=== PATIENT | male | born 1960 | race Caucasian/White ===

== ENCOUNTER 2018-09-06 11:57 | Inpatient (IN) | payer OTHER ==
[2018-09-06] VITALS (17 sets, daily range): BP systolic 88–145; BP diastolic 39–81
[~2018-09-06] VITALS: Ht 165.1 cm; Wt 56.2 kg
--- NOTE | 2018-09-06 12:00 | NUR ---
PATIENT RESP SHALLOW, LABORED, WITH USE OF ACCESSORY MUSCLES. SKIN PALE AND DIAPHORETIC. DR MEYERS AT BEDSIDE. ACADIAN WARRANTY ADMINISTRATOR AT BEDSIDE STATES PATIENT PULLED OUT TRACH AND THE PENITENTIARY STAFF WAS UNABLE TO RE-INSERT TRACH. TRACH STOMA BEING BAGGED BY RESPIRATORY. DR MEYERS AT BEDSIDE PREPPING PATIENT FOR TRACH INSERTION.
--- NOTE | 2018-09-06 12:05 | NUR ---
6.0 SHILEY CUFFED TRACH PLACED BY DR MEYERS,RESPIRATORY AT BEDSIDE. RESP LABORED WITH USE OF ACESSORY MUSCLES, PALE AND DIAPHORETIC. BAGGED BY RESPIRATORY
--- NOTE | 2018-09-06 12:08 | NUR ---
SPO2 60%,BAGGED BY RESPIRATORY, DR MEYERS AT BEDSIDE.
[2018-09-06] MEDS ORDERED: SODIUM CHLORIDE 0.9% 1000ML 2,000 ML ONE (12:17)
--- NOTE | 2018-09-06 12:18 | NUR ---
XRAY AT [facility] FOR CXR.
--- NOTE | 2018-09-06 12:23 | NUR ---
UNABLE TO START PERIPHERAL IV ACCESS, MULTIPLE UNSUCCESSFUL ATTEMPTS, DR MEYERS AT BEDSIDE PREPPING PATIENT FOR CENTRAL LINE PLACEMENT. SPO2 60%, TACHYPENIC, HYPOTENSIVE. Addendum: 09/06/18 at 1704 by AMCCAULE UNABLE TO START PERIPHERAL IV ACCESS, MULTIPLE UNSUCCESSFUL ATTEMPTS, DR MEYERS AT BEDSIDE PREPPING PATIENT FOR EMERGENCY CENTRAL LINE PLACEMENT. SPO2 60%, TACHYPENIC, HYPOTENSIVE. UNABLE TO REACH FAMILY TO OBTAIN CONSENT.
--- NOTE | 2018-09-06 12:31 | NUR ---
RESPIRATORY AT BEDSIDE FOR ABG,UNSUCCESSFUL ATTEMPT, DR MEYERS AT STATES HE WILL PERFORM A FEMORAL STICK TO OBTAIN ABG AFTER CENTRAL LINE IS PLACED.
--- NOTE | 2018-09-06 12:36 | Diagnostic Imaging Report ---
Examination: Single AP view of the chest. COMPARISON: None. INDICATION: Respiratory distress DISCUSSION: Patient rotated. Lines/tubes: Tracheostomy. Lungs: Left midlung consolidation. Bibasilar atelectasis. Pleura: Probable bilateral effusions. Heart and mediastinum: The heart and the mediastinum are unremarkable. Bones and soft tissues: No acute bony abnormalities. IMPRESSION: 1. Left midlung consolidation may reflect pneumonia Signed by: Dr. Hunter Mcclellan M.D. on 09/06/2018 12:33 PM
[2018-09-06] MEDS ORDERED: SODIUM CHLORIDE 0.9% 1000ML 1,000 ML IV ONE ×3 (12:38→14:56)
--- NOTE | 2018-09-06 12:38 | NUR ---
XRAY AT BEDSIDE FOR CXR POST CENTRAL LINE PLACEMENT. PATIENT HYPOTENSIVE, TACHYPENIC. DR MEYERS STARTED STARTED 2L NS BOLUS TO CENTRAL LINE.
--- NOTE | 2018-09-06 12:44 | NUR ---
ABG DRAWN FROM RIGHT FEMORAL ARTERY BY DR MEYERS, TOLERATED WELL.
--- NOTE | 2018-09-06 12:51 | NUR ---
ALLEVYN WOUND DRESSINGS APPLIED TO SACCRAL,RIGHT GLUTEAL FOLD, AND LEFT BUTTOCKS. DRESSING APPLIED TO RIGHT LOWER LEG. TOLERATED WELL.
--- NOTE | 2018-09-06 12:59 | Diagnostic Imaging Report ---
Examination: Single AP view of the chest. COMPARISON: today INDICATION: Respiratory distress DISCUSSION: Patient rotated. Lines/tubes: Tracheostomy. Left central venous catheter with tip overlying the SVC. Lungs: Left midlung consolidation. Bibasilar atelectasis. Pulmonary venous congestion. Pleura: Probable bilateral effusions. Heart and mediastinum: The heart and the mediastinum are unremarkable. Bones and soft tissues: No acute bony abnormalities. Degenerative changes in the thoracic spine. IMPRESSION: 1. Left midlung consolidation may reflect pneumonia 2. Left central venous catheter with tip overlying the SVC. Signed by: Dr. Hunter Mcclellan M.D. on 09/06/2018 12:56 PM
--- NOTE | 2018-09-06 13:06 | NUR ---
DR MEYERS AND RESPIRATORY AT BEDSIDE FOR TRACH EXCHANGE. 8.0 XLT SHILEY CUFFED PLACED BY DR MEYERS,TOLERATED WELL, RECONNECTED TO VENT. TRACH TIES IN PLACE, FINESTRATED DRESSING PLACED AROUND STOMA. SEROSANGUINEOUS PURLENT DRAINAGE NOTED FROM CIRCUMFERENTIAL WOUND AROUND STOMA.
--- NOTE | 2018-09-06 13:09 | NUR ---
OK TO USE CENTRAL LINE PER DR MEYERS.
--- NOTE | 2018-09-06 13:15 | NUR ---
RESPIRATORY AND DR MEYERS AT BEDSIDE,TIDAL VOLUME INCREASED TO 450, NO IMPROVEMENT, TIDAL VOLUME INCREASED TO 500.
[2018-09-06] MEDS ORDERED: PIPER-TAZ 3.375 GM 50 ML IV STA (13:31)
[2018-09-06] MEDS ORDERED: VANCOMYCIN 1GM/NS 250 ML 250 ML IV STA (13:31)
[2018-09-06 13:32] LABS: BASOPHILS % 0.2 % (0.0-1.0); EOSINOPHILS # (AUTO) 0.1 (0.0-0.4); EOSINOPHILS % 0.3 % (0.0-6.0); HEMATOCRIT 19.9 % (38.2-49.6); LYMPHOCYTES # (AUTO) 1.4 (1.0-3.2); LYMPHOCYTES % 6.7 % (18.0-39.1); MEAN CORPUSCULAR HEMOGLOBIN 26.3 pg (28-32); MEAN CORPUSCULAR HGB CONC 28.6 g/dL (31-35); MEAN CORPUSCULAR VOLUME 91.7 fL (81-99); MONOCYTES # (AUTO) 0.9 (0.2-0.8); MONOCYTES % 4.3 % (4.4-11.3); NEUTROPHILS # (AUTO) 17.8 (2.1-6.9); NEUTROPHILS % 88.2 % (38.7-80.0); PLATELET COUNT 318 x10e3/uL (140-360); RED BLOOD COUNT 2.17 x10e6/uL (4.3-5.7); RED CELL DISTRIBUTION WIDTH 18.6 % (11.7-14.4)
--- NOTE | 2018-09-06 13:37 | NUR ---
RESPIRATORY AT BEDSIDE FOR REPEAT ABG.
[2018-09-06 13:48] LABS: INR 1.09; PROTHROMBIN TIME 14.6 seconds (11.9-14.5)
[2018-09-06 13:49] LABS: PARTIAL THROMBOPLASTIN TIME 37.5 seconds (23.8-35.5)
--- NOTE | 2018-09-06 13:54 | NUR ---
NOTIFIED DR MEYERS BP 80/42, VERBAL ORDER NS @ 125ML/HR ORDERED.
[2018-09-06 13:55] LABS: HEMOGLOBIN 5.7 g/dL (14.0-18.0)
[2018-09-06] MEDS ORDERED: SODIUM CHLORIDE 0.9% 1000ML 1,000 ML ONE (13:55)
--- NOTE | 2018-09-06 13:58 | NUR ---
DR ROLLE AT BEDSIDE FOR PATIENT EVAL AND DISCUSSING THE CURENT PLAN OF CARE WITH PATIENT, DISCUSSING CODE STATUS, PATIENT NODDED HEAD UP AND DOWN WHEN DR ROLLE ASKED PATIENT IF HE WANTED TO BE PLACED ON MEDICATION TO MAINTIAN BLOOD PRESSURE. PATIENT MOUTHED "NO" WHEN ASKED BY DR ROLLE ABOUT CPR, AND RESUSCITATION MEASURES,NO CARDIAC MEDICAITONS OR DEFIBRILATION. PATIENT WISHES TO REMAIN A DNR WHILE IN THE HOSPITAL. PATIENT OK WITH VENT AND MEDICATIONS TO MAINTAIN BLOOD PRESSURE,NODDED HEAD UP AND DOWN TO DR ROLLE.
[2018-09-06 13:59] LABS: ALBUMIN 1.2 g/dL (3.5-5.0); ALBUMIN/GLOBULIN RATIO 0.2 (0.8-2.0); ANION GAP 14.3 mmol/L (8-16); CREATININE, SERUM 1.28 mg/dL (0.72-1.25); MAGNESIUM 1.6 MG/DL (1.3-2.1); POTASSIUM 5.3 mmol/L (3.5-5.1)
[2018-09-06] MEDS ORDERED: FENTANYL CITRATE INJ 2,000 MCG in SODIUM CHLORIDE 0.9% 250ML 210 ML IV PRN (14:00)
[2018-09-06] MEDS ORDERED: SODIUM CHLORIDE 0.9% 250ML 250 ML IV ONE (14:00)
[2018-09-06 14:05] LABS: B-TYPE NATRIURETIC PEPTIDE2 82.9 pg/mL (0-100)
[2018-09-06 14:06] LABS: CREATINE KINASE MB 0.7 ng/mL (0-5.0)
--- NOTE | 2018-09-06 14:10 | NUR ---
DR ROLLE AT BEDSIDE. VERBAL ORDER TO INITIATE PATIENT ON LEVOPHED PER PROTOCOL.
[2018-09-06] MEDS ORDERED: NOREPINEPHRINE 8 MG/D5W 250 ML 250 ML ONE (14:16)
[2018-09-06] MEDS: NOREPINEPHRINE INJ 4MG/4ML 8 MG in DEXTROSE 5% 250ML 250 ML IV SCH (14:19)
[2018-09-06] MEDS: MIDAZOLAM HCL 25 MG in SODIUM CHLORIDE 0.9% 50ML 45 ML IV PRN ×2 (14:22→22:00)
[2018-09-06 14:28] LABS: BAND NEUTROPHILS % (MANUAL) 2 %; EOSINOPHILS % (MANUAL) 1 % (0-7); LYMPHOCYTES % (MANUAL) 9 % (19-48); MONOCYTES % (MANUAL) 5 % (3.4-9.0); NEUTROPHILS % (MANUAL) 73 % (40-74)
[2018-09-06 14:29] LABS: PLATELET ESTIMATE ADEQUATE; PLATELET MORPHOLOGY COMMENT NORMAL; RBC MORPHOLOGY COMMENT NORMAL
--- NOTE | 2018-09-06 14:30 | NUR ---
XRAY AT BEDSIDE FOR CXR POST TRACH TUBE EXCHANGE.
--- NOTE | 2018-09-06 14:33 | NUR ---
PATIENT TURNED TO LEFT LATERAL AND PILLOW PLACED UNDER LEGS TO PROTECT HEELS,TOLERATED WELL.
--- NOTE | 2018-09-06 14:37 | NUR ---
BLOOD COLLECTED FOR TYPE AND CROSS,VERIFIED BY CHERYL KUMAR RN AT BEDSIDE.
--- NOTE | 2018-09-06 14:38 | NUR ---
SPOKE WITH DORENE DILLAN AND WAS INFORMED OF PATIENTS CURRENT STATUS, STATES SHE WILL BE UP HERE FROM [place].
--- NOTE | 2018-09-06 14:48 | Diagnostic Imaging Report ---
Examination: Single AP view of the chest. COMPARISON: None. INDICATION: Respiratory distress DISCUSSION: Lines/tubes: Tracheostomy placement. Left central venous catheter stable. Lungs: Stable left midlung consolidation. New opacification of the right upper lung may reflect atelectasis. Pleura: Probable bilateral effusions. Heart and mediastinum: The heart and the mediastinum are unremarkable. Bones and soft tissues: No acute bony abnormalities. Degenerative changes in the thoracic spine. IMPRESSION: Left midlung consolidation is stable New right upper lobe aspiration/atelectasis. Signed by: Dr. Hunter Mcclellan M.D. on 09/06/2018 2:45 PM
--- NOTE | 2018-09-06 14:51 | NUR ---
PATIENT LAYING IN BED WITH EYES CLOSED. RESP EVEN AND UNLABORED. SKIN PALE AND DRY. TRACH VENTED, TOLERATING VENT WELL. SEDATED AT THIS TIME. NO SIGNS OF ACUTE DISTRESS NOTED AT THIS TIME.
--- OUTSIDE RECORDS SUMMARY | 2018-09-06 15:41 | XMS REPORT ---
Author Author [facility] Address Unknown Phone Unavailable Care Team Providers Care Transport Analyst Name Role Phone Reji MEYERS Unavailable Unavailable Problems This patient has no known problems. Allergies, Adverse Reactions, Alerts This patient has no known allergies or adverse reactions. Medications This patient has no known medications. Results Test Description Test Time Test Comments Text Results Atomic Results Result Comments CHEST SINGLE (PORTABLE) 2018-09-06 14:43:00 [place] [address] Patient Name: JACQUIE MIRELES MR #: [id number] : 1960 Age/Sex: 58/M Req #: [id number] Adm Physician: Ordered by: NATHALIA MEYERS MD Report #: [id number] Location: ER Room/Bed: Procedure: [id number] DX/CHEST SINGLE (PORTABLE) Exam Date: 09/06/18 Exam Time: 1435 REPORT STATUS: Signed Examination: Single AP view of the chest. COM PARISON: None. INDICATION: Respiratory distress DISCUSSION: Lines/tubes: Tracheostomy placement. Left central venous catheter stable. Lungs: Stable left midlung consolidation. New opacification of the right upper lung may reflect atelectasis. Pleura: Probable bilateral effusions. Heart and mediastinum: The heart and the mediastinum are unremarkable. Bones and soft tissues: No acute bony abnormalities. Degenerative changes in the thoracic spine. IMPRESSION: Left midlung consolidation is stable New right upper lobe aspiration/atelectasis. Signed by: Dr. Emma nSyder M.D. on 09/06/2018 2:45 PM Dictated By: EMMA SNYDER MD 44 Transcribed By: MCKAY on 09/06/181444 COPY TO: NATHALIA MEYERS MD CHEST XRAY LINE PLACEMENT 2018-09-06 12:54:00 [place] [address] Patient Name: JACQUIE MIRELES MR #: [id number] : 1960 Age/Sex: 58/M Req #: [id number] Adm Physician: Ordered by: NATHALIA MEYERS MD Report #: [id number] Location: ER Room/Bed: Procedure: [id number] DX/CHEST XRAY LINE PLACEMENT Exam Date: 09/06/18 Exam Time: 1240 REPORT STATUS: Signed Examination: Single AP view of the chest. C OMPARISON: today INDICATION: Respiratory distress DISCUSSION: Patient rotated. Lines/tubes: Tracheostomy. Left central venous catheter with tip overlying the SVC. Lungs: Left midlung consolidation. Bibasilar atelectasis. Pulmonary venous congestion. Pleura: Probable bilateral effusions. Heart and mediastinum: The heart and the mediastinum are unremarkable. Bones and soft tissues: No acute bony abnormalities. Degenerative changes in the thoracic spine. IMPRESSION: 1. Left midlung consolidation may reflect pneumonia 2. Left central venous catheter with tip overlying the SVC. Signed by: Dr. Emma Snyder M.D. on 09/06/2018 12:56 PM Dictated By: EMMA SNYDER MD 1256 Transcribed By: MCKAY on 09/06/18 1256 COPY TO: NATHALIA MEYERS MD CHEST SINGLE (PORTABLE) 2018-09-06 12:32:00 [place] [address] Patient Name: JACQUIE MIRELES MR #: [id number] : 1960 Age/Sex: 58/M Req #: [id number] Adm Physician: Ordered by: MELISSA MANZO NP Report #: [id number] Location: ER Room/Bed: Procedure: [id number] DX/CHEST SINGLE (PORTABLE) Exam Date: 09/06/18 Exam Time: 1220 REPORT STATUS: Signed Examination: Single AP view of the chest. CO MPARISON: None. INDICATION: Respiratory distress DISCUSSION: Patient rotated. Lines/tubes: Tracheostomy. Lungs: Left midlung consolidation. Bibasilar atelectasis. Pleura: Probable bilateral effusions. Heart and mediastinum: The heart and the mediastinum are unremarkable. Bones and soft tissues: No acute bony abnormalities. IMPRESSION: 1. Left midlung consolidation may reflect pneumonia Signed by: Dr. Emma Snyder M.D. on 09/06/2018 12:33 PM Dictated By: EMMA SNYDER MD 1233 Transcribed By: MCKAY on 09/06/18 1233 COPY TO: MELISSA MANZO NP
[2018-09-06] MEDS ORDERED: HYDROCORTISONE SOD SUCCINATE 100 MG VIAL IV NR (15:45)
--- NOTE | 2018-09-06 15:57 | NUR ---
RESPIRATORY AT BEDSIDE, SPO2 DROPPING 60-70, SUCTIONING TRACH,TOLERATED WELL.
--- NOTE | 2018-09-06 15:59 | NUR ---
SPO2 IMPROVED AFTER TRACH SUCTIONING, SPO2 NOW 98%.
[2018-09-06] MEDS: VANCOMYCIN HCL 1GM/NS 250 ML BAG IV SCH (16:00)
--- NOTE | 2018-09-06 16:00 | NUR ---
DR FLORES AT BEDSIDE FOR PATIENT EVAL.
[2018-09-06 16:28] LABS: CLARITY,URINE CLOUDY (CLEAR); COLOR,URINE YELLOW (YELLOW)
[2018-09-06 16:29] LABS: LEUKOCYTE ESTERASE ,URINE 2+ (NEGATIVE); PROTEIN,URINE DIPSTICK 2+ (NEGATIVE)
[2018-09-06 16:30] LABS: KETONES,URINE NEGATIVE (NEGATIVE); NITRITE,URINE NEGATIVE (NEGATIVE); URINE UROBILINOGEN 0.2 mg/dL (0.2 - 1)
[2018-09-06 16:31] LABS: BACTERIA,URINE MANY /HPF; BILIRUBIN,URINE NEGATIVE (NEGATIVE); EPITHELIAL CELLS,URINE MODERATE /LPF; WBC,URINE (MAN) >50 /HPF (0-5)
[2018-09-06 16:48] LABS: ABG HCO3 26 mmol/L (23-28); ABG PCO2 39 mmHg (41-51); ABG PH 7.43 (7.31-7.41); ABG PO2 52 mmHg (80-105)
[2018-09-06 16:50] LABS: ABG HCO3 23 mmol/L (23-28); ABG PCO2 37 mmHg (41-51); ABG PO2 50 mmHg (80-105)
[2018-09-06] MEDS: PANTOPRAZOLE 40 MG 10ML VIAL IV SCH (17:00)
--- NOTE | 2018-09-06 17:20 | NUR ---
PATIENT TRANSPORTED TO ICU ROOM 190 ON PORTABLE VENT AND COOK ROAST, WITH RESPIRATORY AND INSTRUMENT TECHNICIAN APPRENTICE. NO SIGNS OF ACUTE DISTRESS NOTED AT THIS TIME.
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
[2018-09-06] MEDS: ALBUTEROL/IPRATROPIUM 3 ML NEB NEB SCH (19:00)
[2018-09-06] MEDS ORDERED: ALBUTEROL SULF 0.083% NEB SOLN 3 ML NEB NEB SCH (19:00)
[2018-09-06] MEDS: IPRATROPIUM BROMIDE 0.02% 2.5 ML NEB NEB SCH (19:00)
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
--- NOTE | 2018-09-06 19:44 | NUR ---
patient transferred to ICU room 190 from ER at 1730. patient restless. versed drip increased to 8mg/hr. levophed titrated down to 5mcg/min. ivf's infusing. skin assessment completed. 3 open pressure ulcers to sacral/buttocks area. stage 3 and left buttock stage 4. updated daughter with plan of care.
--- NOTE | 2018-09-06 19:47 | NUR ---
report given to assembler 1st shift RN
[2018-09-06] MEDS: PIPER-TAZ 3.375 GM 50 ML IV SCH (20:45)
[2018-09-06] MEDS: SODIUM CHLORIDE 0.9% 1000ML 1,000 ML IV SCH ×2 (20:48→23:31)
[2018-09-06] MEDS: HYDROCORTISONE SOD SUCCINATE 100 MG VIAL IV SCH (20:48)
[2018-09-06] MEDS ORDERED: ACETAMINOPHEN 1000 MG/100 ML IV PRN (21:30)
--- NOTE | 2018-09-06 21:30 | NUR ---
CALL PLACED TO RENAL FOR NEW CONSULT
[2018-09-06] MEDS ORDERED: SODIUM CHLORIDE 0.9% 250ML 250 ML ONE (21:53)
--- NOTE | 2018-09-06 22:34 | NUR ---
DR BECERRA RETURNED CALL, INFORMED OF PATIENT HISTORY AND STATUS, NEW ORDERS NOTED FOR LAB WORK IN AM
[2018-09-07] VITALS (25 sets, daily range): BP systolic 90–181; BP diastolic 57–85
--- NOTE | 2018-09-07 | NUR ---
bLOOD PRESSURE STABLE WITH SYST > 90 AND MAP > 65 - LEVOPHED TURNED OFF AT THIS TIME
[2018-09-07] MEDS: IPRATROPIUM BROMIDE 0.02% 2.5 ML NEB NEB SCH (00:30)
[2018-09-07] MEDS: ALBUTEROL/IPRATROPIUM 3 ML NEB NEB SCH ×4 (00:30→18:30)
[2018-09-07] MEDS: HYDROCORTISONE SOD SUCCINATE 100 MG VIAL IV SCH ×4 (00:32→18:05)
[2018-09-07] MEDS: PIPER-TAZ 3.375 GM 50 ML IV SCH ×4 (00:32→18:05)
[2018-09-07] MEDS: MIDAZOLAM HCL 25 MG in SODIUM CHLORIDE 0.9% 50ML 45 ML IV PRN ×2 (01:30→04:55)
[2018-09-07] MEDS: VANCOMYCIN HCL 1GM/NS 250 ML BAG IV SCH ×2 (03:47→16:05)
[2018-09-07 05:43] LABS: BASOPHILS # (AUTO) 0.1 (0.0-0.1); BASOPHILS % 0.3 % (0.0-1.0); EOSINOPHILS # (AUTO) 0.1 (0.0-0.4); EOSINOPHILS % 0.2 % (0.0-6.0); HEMATOCRIT 28.4 % (38.2-49.6); HEMOGLOBIN 8.7 g/dL (14.0-18.0); LYMPHOCYTES # (AUTO) 1.8 (1.0-3.2); LYMPHOCYTES % 8.7 % (18.0-39.1); MEAN CORPUSCULAR HEMOGLOBIN 27.2 pg (28-32); MEAN CORPUSCULAR HGB CONC 30.6 g/dL (31-35); MEAN CORPUSCULAR VOLUME 88.8 fL (81-99); MONOCYTES # (AUTO) 0.5 (0.2-0.8); MONOCYTES % 2.3 % (4.4-11.3); NEUTROPHILS # (AUTO) 18.2 (2.1-6.9); NEUTROPHILS % 87.7 % (38.7-80.0); PLATELET COUNT 285 x10e3/uL (140-360); RED CELL DISTRIBUTION WIDTH 17.1 % (11.7-14.4)
[2018-09-07 05:52] LABS: INR 1.13
[2018-09-07 05:59] LABS: ANION GAP 11.3 mmol/L (8-16); BLOOD UREA NITROGEN 47 mg/dL (7-26); BUN/CREATININE RATIO 45 (6-25); CALCIUM 8.7 mg/dL (8.4-10.2); CARBON DIOXIDE 24 mmol/L (22-29); CHLORIDE 108 mmol/L (98-107); CREATININE, SERUM 1.04 mg/dL (0.72-1.25); EST GLOMERULAR FILTRATION RATE > 60 ML/MIN (60-); GLUCOSE 108 mg/dL (74-118); POTASSIUM 4.3 mmol/L (3.5-5.1); SODIUM 139 mmol/L (136-145)
[2018-09-07 06:12] LABS: CREATINE KINASE < 7 IU/L (30-200)
--- NOTE | 2018-09-07 06:17 | Diagnostic Imaging Report ---
Examination: Single AP view of the chest. COMPARISON: Portable chest 09/06/2018 INDICATION: Sepsis and hypotension IMPRESSION: 1. Lines and Tubes: Supporting lines and tubes are unchanged. 2. Lungs are well-inflated. Improved aeration/interval improvement of the previously visualized left upper lung airspace opacity. No significant interval change in left midlung/lower lung airspace opacity. Small right pleural effusion. 3. Cardiomediastinal silhouette is normal. Mild central congestion. 4. No acute bony abnormalities. Signed by: Dr. Kemal Martin M.D. on 09/07/2018 6:14 AM
[2018-09-07] MEDS: NOREPINEPHRINE INJ 4MG/4ML 8 MG in DEXTROSE 5% 250ML 250 ML IV SCH (07:59)
[2018-09-07 08:24] LABS: CREATININE,URINE RANDOM 21.25 mg/dL (63-166)
[2018-09-07 09:28] LABS: ABG PCO2 40 mmHg (41-51); ABG PH 7.36 (7.31-7.41); ABG PO2 168 mmHg (80-105)
[2018-09-07 09:29] LABS: ABG HCO3 22 mmol/L (23-28)
[2018-09-07] MEDS: HEPARIN SOD (PORCINE) 5,000 UNIT/ML VIAL SC SCH ×2 (09:30→22:05)
[2018-09-07] MEDS: PANTOPRAZOLE 40 MG 10ML VIAL IV SCH ×2 (09:45→18:05)
[2018-09-07] MEDS: SODIUM CHLORIDE 0.9% 1000ML 1,000 ML IV SCH ×2 (10:22→20:41)
--- NOTE | 2018-09-07 10:44 | Diagnostic Imaging Report ---
Exam: Abdominal film Clinical History: Sepsis, hypotension, G-tube Comparison: Chest radiograph earlier 09/07/2018 DISCUSSION: Gastrostomy catheter retention bolster projects over the gastric body, unchanged compared to 09/07/2018. Bowel gas pattern shows no dilated, air-filled loops of bowel. Radiodense material projecting over the left midabdomen may represent enteric contrast material in the left colon. No jordin pneumoperitoneum. IVC filter projects over the L2 and upper L3 vertebral bodies to the right of midline. Atherosclerotic vascular calcifications. Regional skeletal structures are intact. IMPRESSION: Nonobstructive bowel gas pattern. Unchanged position of gastrostomy catheter relative to chest radiograph earlier 09/07/2018. Signed by: Dr. Balta Feliz M.D. on 09/07/2018 10:41 AM
--- NOTE | 2018-09-07 11:30 | NUR ---
WOUND CARE NURSE CONSULTATION. 58 YEAR OLD MALE ADMITTED TO [facility] WITH SEPSIS WITH HYPOTENSION, ACUTE HYPOXIC RESPIRATORY FAILURE. HEAD TO TOE SKIN ASSESSMENT PERFORMED TODAY, PT PRESENTS WITH MULTIPLE PRESSURE ULCERS. PT IS INTUBATED, HAS COLOSTOMY AND PEG TUBE IN PLACE. UPON ASSESSMENT PT PRESENTS WITH A STAGE IV PRESSURE ULCER TO SACRUM, 7.5X13X0.9CM 30% FIBRIN 70% GRANULAR, BONE EXPOSED. STAGE IV PRESSURE ULCER TO LEFT ISCHIUM, [id number] WITH UNDERMINING 2.8CM FROM 10-12 O'CLOCK. BONE EXPOSED. STAGE III PRESSURE ULCER TO RIGHT ISCHIUM, 5X6X1 CM. RIGHT LATERAL LOWER LEG STAGE III PRESSURE ULCER, 9X2.4X0.2CM. 40% GRANULAR, 60% GRANULAR. MODERATE SEROSANGUINEOUS DRAINAGE IS PRESENT FROM ALL ULCERS. PT ALSO PRESENTS WITH A LEFT BKA WITH SUTURES INTACT. THERE ARE NO OTHER AREAS OF CONCERN AT THIS TIME. NO S/S OF INFECTION. LABS: WBC: 20.80 ALB: 1.2 BLOOD AND SPUTUM CX PENDING. SPOKE WITH DR. COOK FOR RECOMMENDATIONS TO PLACE A WOUND VAC ON SACRAL AND BILATERAL ISCHIAL WOUNDS STATES " LETS JUST DO LOCAL DAILY WOUND CARE FOR NOW" RECOMMENDATIONS. CLEAN SACRUM, BILATERAL ISCHIUM, AND LEFT LOWER LEG ULCERS WITH NS, APPLY MAXORB AG TO WOUND BED AND COVER WITH ABD PADS AND TAPE. CHANGE DRESSING DAILY AND PRN. DRY DRESSING TO LEFT BKA. DAILY. TURN PT EVERY TWO HOURS AND PRN. CONTINUE WITH ALTERNATING LOW AIR LOSS MATTRESS. CONTINUE WITH RIGHT HEEL PROTECTOR AND PILLOW SUSPENSION TO LEFT BKA. THANKS FOR THIS CONSULTATION. THANKS FOR THIS CONSULTATION. Addendum: 09/08/18 at 0941 by Candy Davis RN Amended: Links added.
[2018-09-07 15:07] LABS: CREATINE KINASE < 7 IU/L (30-200)
--- NOTE | 2018-09-07 16:00 | NUR ---
PT TRANSFERED FROM THE MEDICAL RESORT WITH SEPSIS AND HYPOTENSIONI ON TRACH/VENT PLAN RETURN BACK TO MED RESORT UPON DISCHARGE
--- NOTE | 2018-09-07 17:00 | NUR ---
Dr. Grant at bedside, placed 18Fr messina with guide. bloody urine output noted initially then yellow.
[2018-09-07] MEDS: MIDAZOLAM HCL 2 MG/2 ML VIAL IV PRN ×2 (18:10→22:04)
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
--- NOTE | 2018-09-07 18:33 | NUR ---
patient has large amount of oral secretions. clear secretions. there are ulcerated areas under the trach site. cleaned wounds with ns and placed xeroform f/b dsd. Family at bedside now. patient awake, more anxious with family present. pt calm all day until recently. versed given earlier prior to family arriving with good effect. bp 151/76, hr79, sats 98% on vent
--- NOTE | 2018-09-07 19:07 | NUR ---
slot shift supervisor nursing report given
--- NOTE | 2018-09-07 22:50 | NUR ---
MOVED TO LOW AIR LOSS ROTATIONAL BED AT THIS TIME
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
--- NOTE | 2018-09-07 23:18 | Diagnostic Imaging Report ---
EXAM: CT Abdomen and Pelvis WITHOUT contrast INDICATION: STONE PROTOCOL, UTI'S, NGB, HEMATURIA COMPARISON: None. TECHNIQUE: Abdomen and pelvis were scanned utilizing a multidetector helical scanner from the lung base to the pubic symphysis without administration of IV contrast. Coronal and sagittal reformations were obtained. Routine protocol was performed. IV CONTRAST: None ORAL CONTRAST: Water COMPLICATIONS: None RADIATION DOSE: Total DLP: 431.3 mGy*cm Estimated effective dose: (DLP x 0.015 x size factor) mSv Dose modulation, iterative reconstruction, and/or weight based adjustment of the mA/kV was utilized to reduce the radiation dose to as low as reasonably achievable. FINDINGS: Absence of intravenous contrast decreases sensitivity for detection of focal lesions and vascular pathology. LINES and TUBES: Percutaneous gastrostomy tube. Toth catheter in place. LOWER THORAX: Right lower lobe consolidation, left lower lobe patchy opacities, and scattered right middle lobe groundglass opacities. Hypoattenuation of the cardiac blood pool suggesting anemia. HEPATOBILIARY: Mildly nodular contour of the liver and hepatomegaly. No focal hepatic lesions within the limitations of noncontrast exam. No biliary ductal dilation. GALLBLADDER: No radio-opaque stones or sludge. No wall thickening. SPLEEN: Enlarged measuring 14 cm in length. PANCREAS: No focal masses or ductal dilatation. ADRENALS: No adrenal nodules KIDNEYS/URETERS: No hydronephrosis. No cystic or solid mass lesions. Punctate calcifications in the left kidney likely representing stones. GI TRACT: No abnormal distention, wall thickening, or evidence of bowel obstruction. Mild right upper quadrant stranding which may be related to perihepatic ascites. There are diverticula within the colon without evidence of diverticulitis. Diverting colostomy involving the distal transverse colon. Appendix is normal. PELVIC ORGANS/BLADDER: Air within the bladder, likely secondary to Toth catheter. Circumferential bladder wall thickening which may be secondary to underdistention. LYMPH NODES: No lymphadenopathy. VESSELS: Limited evaluation without intravenous contrast. IVC filter tip at the level of the L1 superior endplate. Scattered atherosclerotic calcifications. PERITONEUM / RETROPERITONEUM: Mild perihepatic ascites. No free air. BONES: Gluteal soft tissue ulceration and soft tissue thinning overlying the sclerotic appearing bilateral ischia. Inflammatory soft tissue and bony erosive changes involving the left acetabulum and femoral head. Erosion of the sacrum below S3. SOFT TISSUES: See above. IMPRESSION: 1. Right lower lobe consolidation and left lower lobe patchy opacities may represent pneumonia and/or aspiration. 2. Mildly nodular liver contour suggestive of cirrhosis. Splenomegaly may reflect portal hypertension. 3. Decubitus ulcers with septic arthritis/osteomyelitis with erosive changes of the left femoral head and acetabulum. Additional osteomyelitis involving the lower sacrum and ischia which appear more chronic. 4. Left nephrolithiasis. 5. Circumferential bladder wall thickening which may be secondary to underdistention and reported neurogenic bladder. Recommend correlation with urinalysis to exclude infectious cystitis. If hematuria persists and GFR permits, consider CT urography for further evaluation. 6. Colonic diverticulosis. Signed by: DR. Giuliano Anderson MD on 09/07/2018 11:14 PM
[2018-09-08] VITALS (26 sets, daily range): BP systolic 123–184; BP diastolic 64–97
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
[2018-09-08] MEDS ORDERED: ALBUTEROL2.5 MG/3 M INH (00:22)
[2018-09-08] MEDS ORDERED: ATIVAN0.5 MG PEG (00:22)
[2018-09-08] MEDS ORDERED: COLACE100 MG/10 PO (00:22)
[2018-09-08] MEDS ORDERED: KETOCONAZOLE15 GM TOP (00:22)
[2018-09-08] MEDS ORDERED: CALCIUM CARBON500 MG PEG (00:22)
[2018-09-08] MEDS ORDERED: ASPIRIN CHEW81 MG PEG (00:22)
[2018-09-08] MEDS ORDERED: MULTIVITAMINS1 EAC6 PEG (00:37)
[2018-09-08] MEDS ORDERED: POLYETHYLENE GL17 GM PEG (00:37)
[2018-09-08] MEDS ORDERED: THIAMINE H100 MG/1 M IV (00:37)
[2018-09-08] MEDS ORDERED: MS CONTIN15 MG PEG (00:37)
[2018-09-08] MEDS ORDERED: VITAMIN B-1100 M1 PEG (00:37)
[2018-09-08] MEDS ORDERED: ULTRAM 50MG50 MG PEG (00:37)
[2018-09-08] MEDS ORDERED: SERTRALINE HCL50 MG PEG (00:37)
[2018-09-08] MEDS ORDERED: ASCORBIC ACID500 M2 PEG (00:37)
[2018-09-08] MEDS ORDERED: VITAMIN B-650 MG PEG (00:37)
[2018-09-08] MEDS ORDERED: OXYCODONE-ACET1 EAC1 PEG (00:37)
[2018-09-08] MEDS ORDERED: TRAZODONE HCL50 MG PEG (00:37)
[2018-09-08] MEDS ORDERED: SILVADENE20 GM TOP (00:37)
[2018-09-08] MEDS ORDERED: MIDODRINE HCL2.5 MG PEG (00:37)
[2018-09-08] MEDS ORDERED: PEPCID20 MG PEG (00:37)
[2018-09-08] MEDS ORDERED: QUETIAPINE FUMA25 MG PEG (00:37)
[2018-09-08] MEDS ORDERED: ZINC SULFATE220 MG PEG (00:37)
[2018-09-08] MEDS ORDERED: LEVETIRACE500 MG/51 PEG (00:37)
[2018-09-08] MEDS ORDERED: SIMETHICONE80 MG PEG (00:37)
[2018-09-08] MEDS: HYDROCORTISONE SOD SUCCINATE 100 MG VIAL IV SCH ×2 (00:41→05:40)
[2018-09-08] MEDS: PIPER-TAZ 3.375 GM 50 ML IV SCH ×4 (00:41→18:20)
[2018-09-08] MEDS: ALBUTEROL/IPRATROPIUM 3 ML NEB NEB SCH ×4 (01:15→19:00)
[2018-09-08] MEDS: SODIUM CHLORIDE 0.9% 1000ML 1,000 ML IV SCH ×3 (02:37→23:05)
[2018-09-08] MEDS: MIDAZOLAM HCL 2 MG/2 ML VIAL IV PRN ×2 (03:04→07:42)
[2018-09-08] MEDS: VANCOMYCIN HCL 1GM/NS 250 ML BAG IV SCH ×2 (04:00→16:00)
--- NOTE | 2018-09-08 04:09 | Diagnostic Imaging Report ---
EXAMINATION: CHEST SINGLE (PORTABLE) INDICATION: sob COMPARISON: Chest x-ray 09/07/2018, CT abdomen and pelvis 09/07/2018 FINDINGS: AP view TUBES and LINES: Tracheostomy tube, stable. Partially visualized IVC filter. Percutaneous gastrostomy tube. Left subclavian catheter tip overlies the upper SVC. LUNGS: Diffuse airspace opacities, most prominent in the right upper lobe. Right upper lobe airspace disease, increased. PLEURA: Small right pleural effusion. HEART AND MEDIASTINUM: The cardiomediastinal silhouette is unremarkable. BONES AND SOFT TISSUES: No acute osseous lesion. Radiopaque densities project over the lower neck. Surgical clips project over the left arm. UPPER ABDOMEN: No free air under the diaphragm. IMPRESSION: Persistent multifocal airspace opacities, mildly worsened in the right upper lobe. Signed by: DR. Giuliano Anderson MD on 09/08/2018 4:06 AM
[2018-09-08 05:28] LABS: BASOPHILS % 0.2 % (0.0-1.0); HEMATOCRIT 26.5 % (38.2-49.6); LYMPHOCYTES # (AUTO) 1.2 (1.0-3.2); LYMPHOCYTES % 11.8 % (18.0-39.1); MEAN CORPUSCULAR HEMOGLOBIN 27.2 pg (28-32); MEAN CORPUSCULAR HGB CONC 30.2 g/dL (31-35); MEAN CORPUSCULAR VOLUME 90.1 fL (81-99); MONOCYTES # (AUTO) 0.3 (0.2-0.8); MONOCYTES % 3.1 % (4.4-11.3); NEUTROPHILS # (AUTO) 8.7 (2.1-6.9); NEUTROPHILS % 84.2 % (38.7-80.0); PLATELET COUNT 298 x10e3/uL (140-360); RED BLOOD COUNT 2.94 x10e6/uL (4.3-5.7); RED CELL DISTRIBUTION WIDTH 17.7 % (11.7-14.4)
[2018-09-08 05:58] LABS: ANION GAP 12.1 mmol/L (8-16); BLOOD UREA NITROGEN 44 mg/dL (7-26); BUN/CREATININE RATIO 37 (6-25); CALCIUM 8.3 mg/dL (8.4-10.2); CARBON DIOXIDE 19 mmol/L (22-29); CHLORIDE 112 mmol/L (98-107); CREATININE, SERUM 1.19 mg/dL (0.72-1.25); EST GLOMERULAR FILTRATION RATE > 60 ML/MIN (60-); GLUCOSE 119 mg/dL (74-118); POTASSIUM 3.1 mmol/L (3.5-5.1); SODIUM 140 mmol/L (136-145)
[2018-09-08] MEDS: PANTOPRAZOLE 40 MG 10ML VIAL IV SCH ×2 (07:41→18:19)
[2018-09-08] MEDS: HEPARIN SOD (PORCINE) 5,000 UNIT/ML VIAL SC SCH ×3 (07:42→21:30)
[2018-09-08] MEDS ORDERED: POTASSIUM CHLORIDE 20MEQ/100ML 200 ML IV ONE (08:30)
[2018-09-08 09:39] LABS: % IRON SATURATION 7 % (15-50); IRON 10 ug/dL (65-175); TOTAL IRON BINDING CAPACITY 136 ug/dL (261-478); TRANSFERRIN 97 mg/dL (174-364)
[2018-09-08 10:10] LABS: ABG HCO3 18 mmol/L (23-28); ABG PCO2 34 mmHg (41-51); ABG PH 7.34 (7.31-7.41); ABG PO2 87 mmHg (80-105)
[2018-09-08] MEDS: LORAZEPAM 0.5 MG TAB PEG PRN (10:37)
[2018-09-08] MEDS: SERTRALINE HCL 50 MG TAB PEG SCH (10:37)
[2018-09-08] MEDS ORDERED: LORAZEPAM 0.5 MG TAB ONE (10:39)
[2018-09-08] MEDS ORDERED: SERTRALINE HCL 50 MG TAB ONE (10:39)
[2018-09-08] MEDS ORDERED: HYDROMORPHONE 1MG/1ML INJ IV PRN (11:15)
[2018-09-08] MEDS: POTASSIUM CHLORIDE 20MEQ/100ML 100 ML IV SCH ×2 (11:47→11:54)
[2018-09-08] MEDS: HYDROMORPHONE 2MG/ML 2 MG/ML ML IV PRN ×2 (11:49→19:39)
[2018-09-08] MEDS ORDERED: NON-FORMULARY MEDICATION (Levetiracetam 500 MG) PEG SCH (17:00)
[2018-09-08] MEDS ORDERED: PROPOFOL IV EMULSION 10MG/ML 100 ML ONE (18:01)
[2018-09-08] MEDS: LEVETIRACETAM ORAL SOLUTION 500 MG/5 ML SOLN PEG SCH (18:19)
[2018-09-08] MEDS: TRAZODONE HCL 50 MG TAB PEG SCH (21:30)
[2018-09-08] MEDS: QUETIAPINE FUMARATE 25 MG TAB PEG SCH (21:30)
[2018-09-09] VITALS (25 sets, daily range): BP systolic 125–185; BP diastolic 66–91
[2018-09-09] MEDS: PIPER-TAZ 3.375 GM 50 ML IV SCH ×5 (00:05→23:23)
[2018-09-09] MEDS: HYDROMORPHONE 2MG/ML 2 MG/ML ML IV PRN ×6 (00:06→23:35)
[2018-09-09] MEDS: ALBUTEROL/IPRATROPIUM 3 ML NEB NEB SCH ×4 (02:20→18:55)
[2018-09-09] MEDS: VANCOMYCIN HCL 1GM/NS 250 ML BAG IV SCH ×2 (04:32→16:00)
[2018-09-09] MEDS: LEVETIRACETAM ORAL SOLUTION 500 MG/5 ML SOLN PEG SCH ×2 (09:00→17:00)
[2018-09-09] MEDS: PANTOPRAZOLE 40 MG 10ML VIAL IV SCH ×2 (09:00→17:40)
[2018-09-09] MEDS: HEPARIN SOD (PORCINE) 5,000 UNIT/ML VIAL SC SCH ×2 (10:14→21:19)
[2018-09-09] MEDS: SODIUM CHLORIDE 0.9% 1000ML 1,000 ML IV SCH ×2 (12:20→23:20)
[2018-09-09] MEDS: TRAZODONE HCL 50 MG TAB PEG SCH (21:16)
[2018-09-09] MEDS: QUETIAPINE FUMARATE 25 MG TAB PEG SCH (21:16)
[2018-09-09] MEDS: LORAZEPAM 0.5 MG TAB PEG PRN (23:20)
[2018-09-10] VITALS (22 sets, daily range): BP systolic 119–181; BP diastolic 68–85
[2018-09-10] MEDS: VANCOMYCIN HCL 1GM/NS 250 ML BAG IV SCH (00:42)
[2018-09-10] MEDS: ALBUTEROL/IPRATROPIUM 3 ML NEB NEB SCH ×4 (02:40→19:10)
[2018-09-10] MEDS: HYDROMORPHONE 2MG/ML 2 MG/ML ML IV PRN ×5 (03:36→20:30)
[2018-09-10 05:31] LABS: BASOPHILS % 0.5 % (0.0-1.0); EOSINOPHILS # (AUTO) 0.2 (0.0-0.4); EOSINOPHILS % 3.6 % (0.0-6.0); HEMATOCRIT 25.4 % (38.2-49.6); LYMPHOCYTES # (AUTO) 1.6 (1.0-3.2); LYMPHOCYTES % 26.6 % (18.0-39.1); MEAN CORPUSCULAR HEMOGLOBIN 27.4 pg (28-32); MEAN CORPUSCULAR HGB CONC 29.5 g/dL (31-35); MEAN CORPUSCULAR VOLUME 92.7 fL (81-99); MONOCYTES # (AUTO) 0.2 (0.2-0.8); MONOCYTES % 3.9 % (4.4-11.3); NEUTROPHILS % 65.1 % (38.7-80.0); PLATELET COUNT 254 x10e3/uL (140-360); RED BLOOD COUNT 2.74 x10e6/uL (4.3-5.7); RED CELL DISTRIBUTION WIDTH 18.4 % (11.7-14.4)
--- NOTE | 2018-09-10 05:41 | Diagnostic Imaging Report ---
EXAMINATION: CHEST SINGLE (PORTABLE) INDICATION: trach COMPARISON: Chest x-ray 09/08/2018, CT abdomen and pelvis 09/07/2018 FINDINGS: AP view TUBES and LINES: Tracheostomy tube, stable. Partially visualized IVC filter. Percutaneous gastrostomy tube. Left subclavian catheter tip overlies the upper SVC. LUNGS: Diffuse airspace opacities, most prominent in the right upper lobe. Right upper lobe airspace disease, decreased. PLEURA: Small right pleural effusion. HEART AND MEDIASTINUM: The cardiomediastinal silhouette is unremarkable. BONES AND SOFT TISSUES: No acute osseous lesion. Radiopaque densities project over the lower neck. UPPER ABDOMEN: No free air under the diaphragm. IMPRESSION: Persistent multifocal airspace opacities, improved in the right upper lobe. Signed by: DR. Giuliano Anderson MD on 09/10/2018 5:38 AM
[2018-09-10 05:48] LABS: HEMOGLOBIN 7.5 g/dL (14.0-18.0)
[2018-09-10 06:08] LABS: ANION GAP 9.5 mmol/L (8-16); BLOOD UREA NITROGEN 30 mg/dL (7-26); BUN/CREATININE RATIO 32 (6-25); CALCIUM 8.2 mg/dL (8.4-10.2); CARBON DIOXIDE 18 mmol/L (22-29); CHLORIDE 124 mmol/L (98-107); CREATININE, SERUM 0.94 mg/dL (0.72-1.25); EST GLOMERULAR FILTRATION RATE > 60 ML/MIN (60-); GLUCOSE 90 mg/dL (74-118); SODIUM 149 mmol/L (136-145)
[2018-09-10] MEDS: PIPER-TAZ 3.375 GM 50 ML IV SCH (06:27)
[2018-09-10 06:40] LABS: POTASSIUM 2.5 mmol/L (3.5-5.1)
[2018-09-10] MEDS: POTASSIUM CHLORIDE 20MEQ/100ML 100 ML IV PRN (07:05)
[2018-09-10] MEDS ORDERED: POTASSIUM CHLORIDE 20 MEQ TAB CR PO STA (08:30)
--- NOTE | 2018-09-10 08:33 | NUR ---
spoke with Dr. Alvarado Pastrana, K+ 2.5 this morning. orders received to replace potassium.
[2018-09-10] MEDS: PANTOPRAZOLE 40 MG 10ML VIAL IV SCH ×2 (09:45→16:16)
[2018-09-10] MEDS: SERTRALINE HCL 50 MG TAB PEG SCH (09:45)
[2018-09-10] MEDS: LEVETIRACETAM ORAL SOLUTION 500 MG/5 ML SOLN PEG SCH ×2 (09:45→16:16)
[2018-09-10] MEDS: CEFEPIME 1GM/NS 0.9% 50 ML 50 ML IV SCH ×2 (09:45→20:51)
[2018-09-10] MEDS: HEPARIN SOD (PORCINE) 5,000 UNIT/ML VIAL SC SCH ×2 (09:47→20:53)
[2018-09-10] MEDS ORDERED: POTASSIUM CHLORIDE 20 MEQ TAB CR PO ONE ×3 (10:30→14:30)
[2018-09-10] MEDS: LORAZEPAM 0.5 MG TAB PEG PRN (11:30)
[2018-09-10] MEDS: IRON SUCROSE 100 MG in SODIUM CHLORIDE 0.9% 100 ML 100 ML IV SCH (12:09)
[2018-09-10 14:58] LABS: ABG HCO3 16 mmol/L (23-28); ABG PCO2 27 mmHg (41-51); ABG PH 7.37 (7.31-7.41); ABG PO2 179 mmHg (80-105)
[2018-09-10] MEDS: SODIUM CHLORIDE 0.9% 1000ML 1,000 ML IV SCH ×2 (15:05→16:17)
[2018-09-10] MEDS: QUETIAPINE FUMARATE 25 MG TAB PO PRN (16:23)
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
[2018-09-10] MEDS: QUETIAPINE FUMARATE 25 MG TAB PEG SCH (20:51)
[2018-09-11] VITALS (23 sets, daily range): BP systolic 121–189; BP diastolic 62–89
[2018-09-11] MEDS: HYDROMORPHONE 2MG/ML 2 MG/ML ML IV PRN ×5 (00:31→23:42)
[2018-09-11] MEDS: LORAZEPAM 0.5 MG TAB PEG PRN ×4 (00:49→23:42)
[2018-09-11] MEDS: ALBUTEROL/IPRATROPIUM 3 ML NEB NEB SCH ×4 (01:20→19:15)
[2018-09-11] MEDS: QUETIAPINE FUMARATE 25 MG TAB PO PRN ×3 (02:13→16:00)
[2018-09-11] MEDS: TRAZODONE HCL 50 MG TAB PEG PRN (02:13)
[2018-09-11] MEDS: SODIUM CHLORIDE 0.9% 1000ML 1,000 ML IV SCH (02:18)
[2018-09-11 05:45] LABS: ANION GAP 7.7 mmol/L (8-16); BLOOD UREA NITROGEN 24 mg/dL (7-26); BUN/CREATININE RATIO 27 (6-25); CALCIUM 8.2 mg/dL (8.4-10.2); CARBON DIOXIDE 17 mmol/L (22-29); CHLORIDE 130 mmol/L (98-107); CREATININE, SERUM 0.88 mg/dL (0.72-1.25); EST GLOMERULAR FILTRATION RATE > 60 ML/MIN (60-); GLUCOSE 113 mg/dL (74-118); POTASSIUM 3.7 mmol/L (3.5-5.1); SODIUM 151 mmol/L (136-145)
[2018-09-11] MEDS: PANTOPRAZOLE 40 MG 10ML VIAL IV SCH ×2 (09:00→17:00)
[2018-09-11] MEDS: SERTRALINE HCL 50 MG TAB PEG SCH (09:00)
[2018-09-11] MEDS: CEFEPIME 1GM/NS 0.9% 50 ML 50 ML IV SCH ×2 (09:00→20:44)
[2018-09-11] MEDS: HEPARIN SOD (PORCINE) 5,000 UNIT/ML VIAL SC SCH ×2 (09:00→20:45)
[2018-09-11] MEDS: LEVETIRACETAM ORAL SOLUTION 500 MG/5 ML SOLN PEG SCH ×2 (09:00→17:00)
[2018-09-11] MEDS ORDERED: DEXTROSE 5% 1,000 ML IV SCH (09:15)
[2018-09-11] MEDS: IRON SUCROSE 100 MG in SODIUM CHLORIDE 0.9% 100 ML 100 ML IV SCH (09:15)
--- NOTE | 2018-09-11 10:48 | NUR ---
ST Note: Pt continues to require ventilator support. Will defer assessment of swallow safety for today. Will f/u as indicated.
[2018-09-11 11:43] LABS: BASOPHILS % 0.4 % (0.0-1.0); EOSINOPHILS # (AUTO) 0.2 (0.0-0.4); EOSINOPHILS % 2.6 % (0.0-6.0); HEMATOCRIT 24.3 % (38.2-49.6); HEMOGLOBIN 7.1 g/dL (14.0-18.0); LYMPHOCYTES # (AUTO) 1.9 (1.0-3.2); LYMPHOCYTES % 26.1 % (18.0-39.1); MEAN CORPUSCULAR HEMOGLOBIN 27.2 pg (28-32); MEAN CORPUSCULAR HGB CONC 29.2 g/dL (31-35); MEAN CORPUSCULAR VOLUME 93.1 fL (81-99); MONOCYTES # (AUTO) 0.2 (0.2-0.8); MONOCYTES % 3.3 % (4.4-11.3); NEUTROPHILS # (AUTO) 4.8 (2.1-6.9); NEUTROPHILS % 67.2 % (38.7-80.0); PLATELET COUNT 243 x10e3/uL (140-360); RED BLOOD COUNT 2.61 x10e6/uL (4.3-5.7)
[2018-09-11] MEDS: SODIUM BICARBONATE 8.4% SYRING 50 ML in DEXTROSE 5% 1,000 ML IV SCH (13:45)
--- NOTE | 2018-09-11 13:46 | Progress Note ---
DATE: 09/11/2018 Psychiatric Progress Note SUBJECTIVE: The patient evaluated and events noted. The patient is in the ICU. He withdrawn. He admits to feeling depressed, but denies any anxiety. He denies suicidal ideation. He denies any hallucination. He reports poor sleep. The patient has been calm as per nursing staff; however, he is getting p.r.n. Seroquel. The patient received trazodone p.r.n. last night, he complained of poor sleep. Ativan p.r.n. has been reduced by Pulmonology. MENTAL STATUS EXAM: The patient is a middle-aged male. He is alert, awake, but withdrawn, has some psychomotor retardation. Mood is depressed. Denies suicidal or homicidal ideation. Denies any hallucination or delusion. Thought process is concrete. Insight and judgment are fair. ASSESSMENT: 1. Major depressive disorder, recurrent, mild to moderate. 2. Rule out psychosis. PLAN: 1. Continue with Zoloft 75 mg p.o. daily. 2. Continue Ativan 0.25 mg p.o. q.6 hours p.r.n. 3. Continue with Seroquel 50 mg p.o. at bedtime. 4. Continue trazodone 50 mg p.o. at bedtime p.r.n. 5. Continue Seroquel 25 mg p.o. q.6 hours p.r.n. 6. Monitor for mood. Dictated by Sofya Vargas PA-C Neptali Phan MD QTV/MODL /[id number]
--- NOTE | 2018-09-11 15:00 | NUR ---
ST Note: Faisal RN, asked if pt could have ice chips for pleasure. Discussed risks associated with any po intake at this time due to need for mechanical ventilation including eventual aspiration and TE fistula. Premature po trials may extend need for vent. However, it pt will require binder layer vent dependence (even though he was not ventilated when he was admitted) then an alterative plan for po trials for pleasure can be developed. Will f/u on Friday09/14/18 to re-assess as indicated.
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
[2018-09-11] MEDS: QUETIAPINE FUMARATE 25 MG TAB PEG SCH (20:44)
[2018-09-12] VITALS (21 sets, daily range): BP systolic 97–185; BP diastolic 46–84
[2018-09-12] MEDS: ALBUTEROL/IPRATROPIUM 3 ML NEB NEB SCH ×5 (01:05→23:40)
[2018-09-12] MEDS: HYDROMORPHONE 2MG/ML 2 MG/ML ML IV PRN ×5 (04:04→21:32)
[2018-09-12 05:00] LABS: BASOPHILS % 0.3 % (0.0-1.0); EOSINOPHILS # (AUTO) 0.4 (0.0-0.4); EOSINOPHILS % 5.5 % (0.0-6.0); HEMATOCRIT 23.4 % (38.2-49.6); LYMPHOCYTES # (AUTO) 2.1 (1.0-3.2); LYMPHOCYTES % 26.7 % (18.0-39.1); MEAN CORPUSCULAR HEMOGLOBIN 26.4 pg (28-32); MEAN CORPUSCULAR HGB CONC 28.6 g/dL (31-35); MEAN CORPUSCULAR VOLUME 92.1 fL (81-99); MONOCYTES # (AUTO) 0.2 (0.2-0.8); MONOCYTES % 2.8 % (4.4-11.3); NEUTROPHILS # (AUTO) 5.1 (2.1-6.9); NEUTROPHILS % 64.3 % (38.7-80.0); PLATELET COUNT 228 x10e3/uL (140-360); RED BLOOD COUNT 2.54 x10e6/uL (4.3-5.7); RED CELL DISTRIBUTION WIDTH 18.9 % (11.7-14.4)
[2018-09-12 05:06] LABS: HEMOGLOBIN 6.7 g/dL (14.0-18.0)
[2018-09-12] MEDS: QUETIAPINE FUMARATE 25 MG TAB PO PRN ×2 (05:15→12:42)
[2018-09-12] MEDS: SODIUM BICARBONATE 8.4% SYRING 50 ML in DEXTROSE 5% 1,000 ML IV SCH ×2 (05:15→17:47)
[2018-09-12 05:18] LABS: ANION GAP 7.5 mmol/L (8-16); BLOOD UREA NITROGEN 20 mg/dL (7-26); BUN/CREATININE RATIO 25 (6-25); CALCIUM 8.1 mg/dL (8.4-10.2); CARBON DIOXIDE 19 mmol/L (22-29); CHLORIDE 122 mmol/L (98-107); EST GLOMERULAR FILTRATION RATE > 60 ML/MIN (60-); GLUCOSE 96 mg/dL (74-118); POTASSIUM 3.5 mmol/L (3.5-5.1); SODIUM 145 mmol/L (136-145)
[2018-09-12] MEDS ORDERED: SODIUM CHLORIDE 0.9% 250ML 250 ML IV ONE (05:30)
--- NOTE | 2018-09-12 06:38 | Diagnostic Imaging Report ---
EXAMINATION: CHEST SINGLE (PORTABLE) INDICATION: sob COMPARISON: Chest x-ray 09/10/2018, CT abdomen and pelvis 09/07/2018 FINDINGS: AP view TUBES and LINES: Tracheostomy tube, stable. Left subclavian catheter tip overlies the upper SVC. LUNGS: Diffuse airspace opacities, most prominent in the right upper lobe. PLEURA: Small right pleural effusion. HEART AND MEDIASTINUM: The cardiomediastinal silhouette is unremarkable. BONES AND SOFT TISSUES: No acute osseous lesion. Radiopaque densities project over the lower neck. UPPER ABDOMEN: No free air under the diaphragm. IMPRESSION: Persistent multifocal airspace opacities, mildly worsened on the right. Signed by: DR. Giuliano Anderson MD on 09/12/2018 6:35 AM
[2018-09-12] MEDS: LORAZEPAM 0.5 MG TAB PEG PRN ×3 (06:45→21:57)
[2018-09-12] MEDS: IRON SUCROSE 100 MG in SODIUM CHLORIDE 0.9% 100 ML 100 ML IV SCH (08:26)
[2018-09-12] MEDS: HEPARIN SOD (PORCINE) 5,000 UNIT/ML VIAL SC SCH ×2 (09:00→21:58)
[2018-09-12] MEDS ORDERED: POTASSIUM CHLORIDE 20MEQ/15ML UDC NG ONE (10:00)
[2018-09-12] MEDS: LEVETIRACETAM ORAL SOLUTION 500 MG/5 ML SOLN PEG SCH ×2 (11:39→17:43)
[2018-09-12] MEDS: PANTOPRAZOLE 40 MG 10ML VIAL IV SCH ×2 (11:39→17:43)
[2018-09-12] MEDS: SERTRALINE HCL 50 MG TAB PEG SCH (11:39)
[2018-09-12] MEDS: CEFEPIME 1GM/NS 0.9% 50 ML 50 ML IV SCH ×2 (11:39→21:57)
[2018-09-12] MEDS ORDERED: SODIUM CHLORIDE 0.9% 250ML 250 ML ONE (16:22)
[2018-09-12 17:54] LABS: ABG HCO3 18 mmol/L (23-28); ABG PCO2 36 mmHg (41-51); ABG PO2 125 mmHg (80-105)
[2018-09-12] MEDS: QUETIAPINE FUMARATE 25 MG TAB PEG SCH (21:57)
[2018-09-13] VITALS (22 sets, daily range): BP systolic 122–178; BP diastolic 56–79
[2018-09-13] MEDS: SODIUM BICARBONATE 8.4% SYRING 50 ML in DEXTROSE 5% 1,000 ML IV SCH ×2 (00:54→21:45)
[2018-09-13] MEDS: QUETIAPINE FUMARATE 25 MG TAB PO PRN ×4 (01:00→20:51)
[2018-09-13] MEDS: HYDROMORPHONE 2MG/ML 2 MG/ML ML IV PRN ×5 (02:15→21:02)
[2018-09-13 04:51] LABS: BASOPHILS % 0.4 % (0.0-1.0); EOSINOPHILS # (AUTO) 0.5 (0.0-0.4); EOSINOPHILS % 4.5 % (0.0-6.0); HEMOGLOBIN 10.6 g/dL (14.0-18.0); LYMPHOCYTES # (AUTO) 2.5 (1.0-3.2); LYMPHOCYTES % 22.5 % (18.0-39.1); MEAN CORPUSCULAR HGB CONC 32.1 g/dL (31-35); MONOCYTES # (AUTO) 0.3 (0.2-0.8); MONOCYTES % 2.7 % (4.4-11.3); NEUTROPHILS # (AUTO) 7.7 (2.1-6.9); NEUTROPHILS % 69.4 % (38.7-80.0); PLATELET COUNT 258 x10e3/uL (140-360); RED BLOOD COUNT 3.93 x10e6/uL (4.3-5.7); RED CELL DISTRIBUTION WIDTH 18.7 % (11.7-14.4)
[2018-09-13 05:09] LABS: ALANINE AMINOTRANSFERASE 19 IU/L (0-55); ALBUMIN 1.3 g/dL (3.5-5.0); ALBUMIN/GLOBULIN RATIO 0.2 (0.8-2.0); ALKALINE PHOSPHATASE 255 IU/L (40-150); ANION GAP 9.2 mmol/L (8-16); BLOOD UREA NITROGEN 18 mg/dL (7-26); BUN/CREATININE RATIO 24 (6-25); CALCIUM 8.5 mg/dL (8.4-10.2); CARBON DIOXIDE 19 mmol/L (22-29); CHLORIDE 116 mmol/L (98-107); CREATININE, SERUM 0.75 mg/dL (0.72-1.25); EST GLOMERULAR FILTRATION RATE > 60 ML/MIN (60-); GLUCOSE 111 mg/dL (74-118); PHOSPHORUS 1.3 MG/DL (2.3-4.7); POTASSIUM 3.2 mmol/L (3.5-5.1); SODIUM 141 mmol/L (136-145)
[2018-09-13 05:23] LABS: MAGNESIUM 1.1 MG/DL (1.3-2.1)
--- NOTE | 2018-09-13 06:08 | NUR ---
PATIENT HAS BEEN MEDICATED WITH PAIN WHEN PRN MED IS TIME. PATIENT PAIN LEVEL HAS NOT IMPROVED. PAINFUL UPON TOUCH TO RIGHT ARM, TURNING, AND ESPECIALLY CHANGING DRESSING TO SACRUM AREA. PAIN LEVEL REACHED A 10 AND DILAUDID WAS GIVEN HOWEVER, THIS PAIN MANAGEMENT REGIMEN IS NOT SUCCESSFUL. WILL CALL ATTENDING TO SEE IF WE CAN GET A BETTER REGIMEN FOR HIS PAIN LEVEL
--- NOTE | 2018-09-13 06:25 | NUR ---
CALLED AND LEFT MSG FOR DR Estela COOK REGARDING PATIENTs PAIN LEVEL AND UNABLE TO MANAGE PATIENTs PAIN ALL THROUGH OUT THE NIGHT. IF NO RETURN CALL WILL REPORT TO ONCOMING NURSE TO PLEASE INFORM MD TO ADDRESS THIS ISSUE
--- NOTE | 2018-09-13 06:34 | NUR ---
CALLED DR MADDEN PEDIATRIC CLINICAL NURSE SPECIALIST MD FOR RENAL MD. DR MADDEN ORDERED AM LABS AND NEEDED TO INFORM HIM OF MAG LEVEL. LEFT MESSAGE TO RETURN CALL.
[2018-09-13] MEDS: ALBUTEROL/IPRATROPIUM 3 ML NEB NEB SCH ×3 (06:40→19:12)
--- NOTE | 2018-09-13 06:40 | NUR ---
PATIENTs SATS DROPPED TO 87% AND HOLDING DESPITE BEING SUCTIONED. CALL RT TO COME AND ASSESS PATIENT
--- NOTE | 2018-09-13 06:41 | NUR ---
DR MADDEN RETURNED PAGE. INFORMED HIM OF PATIENTs LAB RESULTS AND THAT MAG LEVEL AT 1.1. ORDERS RECEIVED AND READ BACK AND CONFIRMED TO GIVE MAG SULFATE 2GM IV X1
[2018-09-13] MEDS ORDERED: MAGNESIUM SULFATE 2GM/50ML 50 ML IV ONE (06:45)
[2018-09-13] MEDS: LORAZEPAM 0.5 MG TAB PEG PRN ×2 (07:45→17:11)
[2018-09-13] MEDS: PANTOPRAZOLE 40 MG 10ML VIAL IV SCH ×2 (09:09→17:10)
[2018-09-13] MEDS: LEVETIRACETAM ORAL SOLUTION 500 MG/5 ML SOLN PEG SCH ×2 (09:09→17:10)
[2018-09-13] MEDS: SERTRALINE HCL 50 MG TAB PEG SCH (09:09)
[2018-09-13] MEDS: CEFEPIME 1GM/NS 0.9% 50 ML 50 ML IV SCH ×2 (09:11→21:00)
[2018-09-13] MEDS: HEPARIN SOD (PORCINE) 5,000 UNIT/ML VIAL SC SCH ×2 (09:12→21:01)
[2018-09-13] MEDS ORDERED: POTASSIUM CHLORIDE 20MEQ/15ML UDC NG ONE (13:00)
--- NOTE | 2018-09-13 19:24 | NUR ---
FEEDING TUBE CHANGED AND NEW BOTTLE OF VITAL HUNG AT THIS TIME. PATIENT TOLERATING WELL NO RESIDUAL
[2018-09-13] MEDS: QUETIAPINE FUMARATE 25 MG TAB PEG SCH (21:00)
[2018-09-13] MEDS: TRAZODONE HCL 50 MG TAB PEG PRN (21:00)
[2018-09-14] VITALS (25 sets, daily range): BP systolic 97–224; BP diastolic 56–97
[2018-09-14] MEDS: LORAZEPAM 0.5 MG TAB PEG PRN ×4 (00:21→20:12)
[2018-09-14] MEDS: ACETAMINOPHEN 325 MG TAB PO PRN ×2 (00:42→21:10)
[2018-09-14] MEDS: HYDROMORPHONE 2MG/ML 2 MG/ML ML IV PRN ×6 (01:00→21:03)
[2018-09-14] MEDS: ALBUTEROL/IPRATROPIUM 3 ML NEB NEB SCH ×4 (01:02→19:18)
[2018-09-14 04:50] LABS: BASOPHILS # (AUTO) 0.1 (0.0-0.1); BASOPHILS % 0.6 % (0.0-1.0); EOSINOPHILS # (AUTO) 0.5 (0.0-0.4); EOSINOPHILS % 4.7 % (0.0-6.0); HEMOGLOBIN 10.6 g/dL (14.0-18.0); LYMPHOCYTES # (AUTO) 2.6 (1.0-3.2); LYMPHOCYTES % 26.5 % (18.0-39.1); MEAN CORPUSCULAR HEMOGLOBIN 27.5 pg (28-32); MEAN CORPUSCULAR HGB CONC 32.1 g/dL (31-35); MEAN CORPUSCULAR VOLUME 85.5 fL (81-99); MONOCYTES # (AUTO) 0.4 (0.2-0.8); MONOCYTES % 3.8 % (4.4-11.3); NEUTROPHILS # (AUTO) 6.2 (2.1-6.9); NEUTROPHILS % 63.9 % (38.7-80.0); PLATELET COUNT 267 x10e3/uL (140-360); RED BLOOD COUNT 3.86 x10e6/uL (4.3-5.7); RED CELL DISTRIBUTION WIDTH 18.8 % (11.7-14.4)
[2018-09-14 05:05] LABS: ANION GAP 9.2 mmol/L (8-16); BLOOD UREA NITROGEN 16 mg/dL (7-26); BUN/CREATININE RATIO 22 (6-25); CALCIUM 8.4 mg/dL (8.4-10.2); CARBON DIOXIDE 21 mmol/L (22-29); CHLORIDE 114 mmol/L (98-107); CREATININE, SERUM 0.73 mg/dL (0.72-1.25); EST GLOMERULAR FILTRATION RATE > 60 ML/MIN (60-); GLUCOSE 103 mg/dL (74-118); PHOSPHORUS 1.5 MG/DL (2.3-4.7); POTASSIUM 3.2 mmol/L (3.5-5.1); SODIUM 141 mmol/L (136-145)
[2018-09-14] MEDS: QUETIAPINE FUMARATE 25 MG TAB PO PRN ×3 (05:20→21:02)
[2018-09-14] MEDS: PANTOPRAZOLE 40 MG 10ML VIAL IV SCH ×2 (08:55→16:00)
[2018-09-14] MEDS: SERTRALINE HCL 50 MG TAB PEG SCH (08:55)
[2018-09-14] MEDS: CEFEPIME 1GM/NS 0.9% 50 ML 50 ML IV SCH ×2 (08:55→21:01)
[2018-09-14] MEDS: LEVETIRACETAM ORAL SOLUTION 500 MG/5 ML SOLN PEG SCH ×2 (08:55→16:00)
[2018-09-14] MEDS: SODIUM BICARBONATE 8.4% SYRING 50 ML in DEXTROSE 5% 1,000 ML IV SCH (09:40)
[2018-09-14] MEDS: POTASSIUM CHLORIDE 20MEQ/100ML 100 ML IV PRN (09:47)
--- NOTE | 2018-09-14 12:54 | NUR ---
PT IS READY TO GO BACK TO [facility], NOTIFIED LOREN THE REP FOR THAT COMPANY SHE IS COMING TO GET CLINICALS FROM [facility]
--- NOTE | 2018-09-14 14:27 | NUR ---
patient transported to MRI via wheelchair Addendum: 09/14/18 at 1505 by Mary Retana RN wrong patient note
[2018-09-14 16:46] LABS: HIV 1&2 AB SCREEN NON-REACTIVE (NONREACTIVE)
[2018-09-14] MEDS ORDERED: POTASSIUM PHOSPHATE 20 MM in SODIUM CHLORIDE 0.9% 250ML 250 ML IV ONE (20:30)
--- NOTE | 2018-09-14 20:33 | NUR ---
DR FRASER ROUNDED VERBAL ORDERS GIVEN AND READ BACK AND CONFIRMED FOR AM LABS CMP,PHOS, MG ALONG WITH A ONE TIME DOSE OF POTASSIUM PHOS 20MM IV AND TO DECREASE IV FLUIDS TO 50ML/HR. ORDERS PLACED
[2018-09-14] MEDS: QUETIAPINE FUMARATE 25 MG TAB PEG SCH (21:01)
[2018-09-15] VITALS (13 sets, daily range): BP systolic 90–153; BP diastolic 57–84
[2018-09-15] MEDS: ALBUTEROL/IPRATROPIUM 3 ML NEB NEB SCH ×2 (01:15→07:20)
[2018-09-15] MEDS: HYDROMORPHONE 2MG/ML 2 MG/ML ML IV PRN ×3 (01:18→09:47)
[2018-09-15] MEDS: QUETIAPINE FUMARATE 25 MG TAB PO PRN ×2 (01:18→09:01)
[2018-09-15] MEDS: SODIUM BICARBONATE 8.4% SYRING 50 ML in DEXTROSE 5% 1,000 ML IV SCH (04:25)
[2018-09-15 04:44] LABS: BASOPHILS % 0.4 % (0.0-1.0); EOSINOPHILS # (AUTO) 0.5 (0.0-0.4); EOSINOPHILS % 4.6 % (0.0-6.0); HEMATOCRIT 33.2 % (38.2-49.6); HEMOGLOBIN 10.2 g/dL (14.0-18.0); LYMPHOCYTES # (AUTO) 2.3 (1.0-3.2); LYMPHOCYTES % 22.7 % (18.0-39.1); MEAN CORPUSCULAR HEMOGLOBIN 26.2 pg (28-32); MEAN CORPUSCULAR HGB CONC 30.7 g/dL (31-35); MEAN CORPUSCULAR VOLUME 85.3 fL (81-99); MONOCYTES # (AUTO) 0.5 (0.2-0.8); MONOCYTES % 4.9 % (4.4-11.3); NEUTROPHILS # (AUTO) 6.7 (2.1-6.9); NEUTROPHILS % 67.1 % (38.7-80.0); PLATELET COUNT 299 x10e3/uL (140-360); RED BLOOD COUNT 3.89 x10e6/uL (4.3-5.7)
[2018-09-15 05:38] LABS: ALANINE AMINOTRANSFERASE 15 IU/L (0-55); ALBUMIN 1.3 g/dL (3.5-5.0); ALBUMIN/GLOBULIN RATIO 0.2 (0.8-2.0); ALKALINE PHOSPHATASE 215 IU/L (40-150); ANION GAP 8.5 mmol/L (8-16); BLOOD UREA NITROGEN 17 mg/dL (7-26); BUN/CREATININE RATIO 26 (6-25); CALCIUM 8.3 mg/dL (8.4-10.2); CARBON DIOXIDE 23 mmol/L (22-29); CHLORIDE 107 mmol/L (98-107); CREATININE, SERUM 0.66 mg/dL (0.72-1.25); EST GLOMERULAR FILTRATION RATE > 60 ML/MIN (60-); GLUCOSE 101 mg/dL (74-118); POTASSIUM 3.5 mmol/L (3.5-5.1); SODIUM 135 mmol/L (136-145)
[2018-09-15] MEDS: LORAZEPAM 0.5 MG TAB PEG PRN (05:43)
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
--- NOTE | 2018-09-15 08:25 | NUR ---
PT TO RETURN TO [facility]ICAL [facility]ORT ROOM 504 UNDER CARE OF Estela COOK, RTF GIVEN TO NURSE TO COMPLETE TRANSFER WHEN DC ORDER OBTAINED
[2018-09-15] MEDS: SERTRALINE HCL 50 MG TAB PEG SCH (09:01)
[2018-09-15] MEDS: PANTOPRAZOLE 40 MG 10ML VIAL IV SCH (09:01)
[2018-09-15] MEDS: CEFEPIME 1GM/NS 0.9% 50 ML 50 ML IV SCH (09:01)
[2018-09-15] MEDS: LEVETIRACETAM ORAL SOLUTION 500 MG/5 ML SOLN PEG SCH (09:01)
--- NOTE | 2018-09-15 10:48 | NUR ---
patient transferred to medical resort. called report to Toya.
--- NOTE | 2018-09-15 12:23 | Diagnostic Imaging Report ---
EXAM: Modified barium swallow INDICATION: Dysphagia COMPARISON: None FINDINGS This examination was conducted in conjunction with speech pathologist. Patient was given, by mouth, liquids and solids of various consistencies. Examination showed deep/penetration with large straw sip nectar thick and penetration with thin via cup sip. No aspiration was noted. Mild vallecular, pharyngeal wall and base of tongue residue was noted with thin liquids. Fluoro time: 1.8 minutes IMPRESSION: <Penetration was noted with thin and nectar thick liquids. No evidence of aspiration. Please see speech pathology report for detailed description and recommendations.> Signed by: Dr. Kemal Martin M.D. on 09/15/2018 12:20 PM
--- NOTE | 2018-09-15 13:48 | Progress Note ---
DATE: 09/15/2018 Psychiatric Progress Note SUBJECTIVE: The patient evaluated and events noted. The patient is in the ICU. He is calm and cooperative. He is oriented to situation. He reports having anxiety. Denies any depression. Denies any suicidal ideation or hallucinations. He has been sleeping, but he is receiving trazodone p.r.n. at times. Denies any hallucinations. Denies any side effects from medication. He is getting Seroquel every day. As per the nursing staff, the patient has been very anxious. Ativan does not help him. Seroquel has been helping him. Vital signs reviewed. MENTAL STATUS EXAMINATION: The patient is a middle-aged , alert, awake, and oriented to situation. Mood is anxious. Psychomotor state is passive. Denies suicidal or homicidal ideation. Denies any hallucination. Thought process is concrete. No delusion elicited. Insight and judgment are fair. ASSESSMENT: Major depressive disorder, recurrent, [id number]; without psychosis. PLAN: 1. Add Seroquel 25 mg p.o. b.i.d. 2. Continue Seroquel 50 mg p.o. at bedtime. 3. Continue Seroquel 25 q.6 hours p.r.n. 4. Continue Zoloft 75 mg p.o. daily. 5. Continue Ativan 0.25 mg p.o. q.6 hours p.r.n. 6. Continue trazodone 50 mg p.o. at bedtime p.r.n. 7. Monitor for mood. 8. Supportive therapy. 9. Discussed with nursing staff. Dictated by Sofya Vargas PA-C Neptali Phan MD QTV/MODL /[id number]
[2018-09-15] MEDS ORDERED: QUETIAPINE FUMARATE 25 MG TAB PO SCH (17:00)
== END 2018-09-15 10:50 | DRG 870 ==
LOC: ER 11:57 → ERHOLD 15:38 → ICU 17:43
PROC: 5A1955Z Respiratory Ventilation, Greater than 96 Consecutive Hours (ICD-10-PCS; principal; 2018-09-06)
PROC: 30243N1 Transfusion of Nonautologous Red Blood Cells into Central Vein, Percutaneous Approach (ICD-10-PCS; principal; 2018-09-06)
PROC: 02HV33Z Insertion of Infusion Device into Superior Vena Cava, Percutaneous Approach (ICD-10-PCS; principal; 2018-09-06)
DX: A41.02 Sepsis due to Methicillin resistant Staphylococcus aureus (principal); L89.154 Pressure ulcer of sacral region, stage 4; R65.21 Severe sepsis with septic shock; J69.0 Pneumonitis due to inhalation of food and vomit; E43 Unspecified severe protein-calorie malnutrition; N17.0 Acute kidney failure with tubular necrosis; J15.212 Pneumonia due to Methicillin resistant Staphylococcus aureus; I42.9 Cardiomyopathy, unspecified; R64 Cachexia; N39.0 Urinary tract infection, site not specified; F32.1 Major depressive disorder, single episode, moderate; E87.1 Hypo-osmolality and hyponatremia; E87.2 Acidosis; M86.679 Other chronic osteomyelitis, unspecified ankle and foot; B19.20 Unspecified viral hepatitis C without hepatic coma; Z68.20 Body mass index [BMI] 20.0-20.9, adult; Z89.512 Acquired absence of left leg below knee; Z93.3 Colostomy status; Z93.0 Tracheostomy status; Z66 Do not resuscitate; Z87.828 Personal history of other (healed) physical injury and trauma; I12.9 Hypertensive chronic kidney disease with stage 1 through stage 4 chronic kidney disease, or unspecified chronic kidney disease; N18.3 Chronic kidney disease, stage 3 (moderate); N31.2 Flaccid neuropathic bladder, not elsewhere classified; G83.9 Paralytic syndrome, unspecified; S14.109S Unspecified injury at unspecified level of cervical spinal cord, sequela; D63.8 Anemia in other chronic diseases classified elsewhere; T14.8XXS Other injury of unspecified body region, sequela; E87.5 Hyperkalemia; N35.919 Unspecified urethral stricture, male, unspecified site; Q54.9 Hypospadias, unspecified; R33.9 Retention of urine, unspecified; B96.5 Pseudomonas (aeruginosa) (mallei) (pseudomallei) as the cause of diseases classified elsewhere; B95.62 Methicillin resistant Staphylococcus aureus infection as the cause of diseases classified elsewhere; E11.22 Type 2 diabetes mellitus with diabetic chronic kidney disease
CPT/HCPCS: 36415; 36555; 36600; 71045; 74018; 74176; 74230; 80048; 80053; 80202; 81001; 82150; 82270; 82550; 82553; 82570; 82805; 83540; 83605; 83690; 83735; 83880; 84100; 84300; 84466; 84484; 85025; 85610; 85730; 86850; 86900; 86920; 87040; 87070; 87071; 87086; 87186; 87205; 87390; 93005; 94002; 94003; 94640; 99285; G0433; G0435; J0692; J1644; J1720; J1756; J2250; J2543; J3370; J3475; J3480; J7030; J7050; J7070; P9016